=== PATIENT | male | born 1945 | race Caucasian/White ===

== ENCOUNTER 2017-09-23 15:54 | Emergency (ER) | payer OTHER ==
[~2017-09-23] VITALS: Ht 188 cm; Wt 93.0 kg
[~2017-09-23 15:54] MED LIST: ALLERGY10 M1 PO; FLOMAX0.4 MG PO; MAPAP325 MG; XARELTO20 MG PO
[2017-09-23] MEDS ORDERED: ZITHROMAX250 MG PO (16:13)
[2017-09-23] MEDS ORDERED: LASIX20 MG PO (16:13)
[2017-09-23] MEDS ORDERED: PROTONIX40 MG PO (16:13)
[2017-09-23] MEDS ORDERED: MISOPROSTOL200 MCG PO (16:14)
== END 2017-09-23 17:36 | disposition home or self-care (01) ==
LOC: ED 15:54
DX: R09.02 Hypoxemia (principal); S22.42XD Multiple fractures of ribs, left side, subsequent encounter for fracture with routine healing; K21.9 Gastro-esophageal reflux disease without esophagitis; I25.10 Atherosclerotic heart disease of native coronary artery without angina pectoris; N40.0 Benign prostatic hyperplasia without lower urinary tract symptoms; Z87.891 Personal history of nicotine dependence; Z95.1 Presence of aortocoronary bypass graft; Z90.49 Acquired absence of other specified parts of digestive tract; Z90.89 Acquired absence of other organs; Z98.890 Other specified postprocedural states; Z98.52 Vasectomy status; Z88.1 Allergy status to other antibiotic agents; Z88.8 Allergy status to other drugs, medicaments and biological substances; Z79.899 Other long term (current) drug therapy; Z79.01 Long term (current) use of anticoagulants; X58.XXXD Exposure to other specified factors, subsequent encounter
CPT/HCPCS: 36415; 71010; 80048; 85025; 99283